=== PATIENT | male | born 1955 | race Caucasian/White ===

== ENCOUNTER 2020-11-28 09:35 | Outpatient (REF) | payer MEDICARE, SELFPAY ==
[2020-11-28 09:51] LABS: Abs Immature Grans 0.09 10^3/uL (0.0-0.06); Absolute Neutrophil Count 8.69 10^3/uL (1.2-6.7); Basophils % 0.4; Eosinophils % 0.4; HCT 29.8 % (40.0-50.0); Immature Grans % 0.7; Lymphocytes % 26.5; MCH 28.8 pg (27.0-33.0); MCHC 33.6 % (32.0-36.0); MCV 85.9 fL (80-95); MPV 9.6 fL (8.0-11.0); Nucleated RBC 0 %; Platelet Count 304 10^3/uL (130-400); RBC 3.47 10^6/uL (4.36-5.78); RDW 14.4 % (11.8-14.1); RDW-SD 42.5 fL; WBC 13.58 10^3/uL (4.4-10.8)
[2020-11-28 09:53] LABS: Absolute Basophil Count 0.05 10^3/uL (0.0-0.2); Absolute Eosinophil Count 0.05 10^3/uL (0.0-0.7); Absolute Monocyte Count 1.09 10^3/uL (0.1-0.8)
[2020-11-28 10:19] LABS: ALT 18 U/L (16-63); AST 14 U/L (15-37); Albumin 3.4 g/dL (3.4-5.0); Alkaline Phosphatase 105 U/L (46-116); Anion Gap 8.1 mmol/L (3-11); BUN 18 mg/dL (7-18); Bilirubin, Total 0.5 mg/dL (0.2-1.0); CO2 28.9 mmol/L (21.0-32.0); CREATININE 1.1 mg/dL (0.70-1.30); Calcium 9.2 mg/dL (8.5-10.1); Chloride 98 mmol/L (98-107); Glucose 178 mg/dL (74-106); Magnesium 1.4 mg/dL (1.8-2.4); Potassium 4.4 mmol/L (3.5-5.1); Sodium 135 mmol/L (136-145); Total Protein 7.9 g/dL (6.4-8.2)
== END 2020-11-28 09:36 | disposition home or self-care (01) ==
LOC: LBN 09:35
PROVIDERS: PCP Family Medicine; Visit Provider Internal Medicine Medical Oncology
DX: C34.90 Malignant neoplasm of unspecified part of unspecified bronchus or lung (principal)
CPT/HCPCS: 80053; 83735; 85025

== ENCOUNTER 2020-12-19 08:47 | Outpatient (REF) | payer MEDICARE, SELFPAY ==
[2020-12-19 09:11] LABS: Abs Immature Grans 0.27 10^3/uL (0.0-0.06); Absolute Basophil Count 0.02 10^3/uL (0.0-0.2); Absolute Eosinophil Count 0.03 10^3/uL (0.0-0.7); Absolute Lymphocyte Count 1.38 10^3/uL (1.2-3.4); Absolute Monocyte Count 1.27 10^3/uL (0.1-0.8); Absolute Neutrophil Count 2.77 10^3/uL (1.2-6.7); Basophils % 0.3; Eosinophils % 0.5; HCT 26.9 % (40.0-50.0); HGB 9.1 g/dL (13.5-17.5); Immature Grans % 4.7; MCH 29.4 pg (27.0-33.0); MCHC 33.8 % (32.0-36.0); MCV 87.1 fL (80-95); MPV 9.6 fL (8.0-11.0); Monocytes % 22.1; Neutrophils % 48.4; Nucleated RBC 0 %; Platelet Count 271 10^3/uL (130-400); RBC 3.09 10^6/uL (4.36-5.78); RDW 15.9 % (11.8-14.1); RDW-SD 49.3 fL; WBC 5.74 10^3/uL (4.4-10.8)
[2020-12-19 09:20] LABS: ALT 23 U/L (16-63); AST 18 U/L (15-37); Albumin 3.3 g/dL (3.4-5.0); Alkaline Phosphatase 99 U/L (46-116); BUN 16 mg/dL (7-18); Bilirubin, Total 0.4 mg/dL (0.2-1.0); CREATININE 0.9 mg/dL (0.70-1.30); Calcium 8.9 mg/dL (8.5-10.1); Chloride 100 mmol/L (98-107); Glucose 199 mg/dL (74-106); Magnesium 1.4 mg/dL (1.8-2.4); Potassium 3.8 mmol/L (3.5-5.1); Sodium 137 mmol/L (136-145); Total Protein 7.5 g/dL (6.4-8.2)
[2020-12-22 07:50] LABS: HCV RNA Qualitative Undetected (Undetected)
== END 2020-12-19 08:48 | disposition home or self-care (01) ==
LOC: LBN 08:47
PROVIDERS: PCP Family Medicine; Visit Provider Internal Medicine Medical Oncology
DX: C34.90 Malignant neoplasm of unspecified part of unspecified bronchus or lung (principal)
CPT/HCPCS: 80053; 87522; 83735; 85025

== ENCOUNTER 2021-01-11 02:28 | Outpatient (CLI) | payer MEDICARE, SELFPAY ==
[2021-01-11 08:07] LABS: Abs Immature Grans 0.07 10^3/uL (0.0-0.06); Absolute Basophil Count 0.03 10^3/uL (0.0-0.2); Absolute Eosinophil Count 0.04 10^3/uL (0.0-0.7); Absolute Monocyte Count 0.98 10^3/uL (0.1-0.8); Absolute Neutrophil Count 7.21 10^3/uL (1.2-6.7); Basophils % 0.3; Eosinophils % 0.4; HGB 8.4 g/dL (13.5-17.5); Immature Grans % 0.8; Lymphocytes % 8.8; MCH 30.8 pg (27.0-33.0); MCHC 33.6 % (32.0-36.0); MCV 91.6 fL (80-95); Monocytes % 10.7; Nucleated RBC 0 %; Platelet Count 210 10^3/uL (130-400); RBC 2.73 10^6/uL (4.36-5.78); RDW 17.4 % (11.8-14.1); WBC 9.13 10^3/uL (4.4-10.8)
[2021-01-11 08:22] LABS: ALT 20 U/L (16-63); AST 16 U/L (15-37); Albumin 3.5 g/dL (3.4-5.0); Alkaline Phosphatase 96 U/L (46-116); Anion Gap 9.4 mmol/L (3-11); BUN 16 mg/dL (7-18); Bilirubin, Total 0.4 mg/dL (0.2-1.0); CO2 28.6 mmol/L (21.0-32.0); CREATININE 0.9 mg/dL (0.70-1.30); Calcium 9.2 mg/dL (8.5-10.1); Chloride 98 mmol/L (98-107); Glucose 150 mg/dL (74-106); Magnesium 1.3 mg/dL (1.8-2.4); Potassium 4.2 mmol/L (3.5-5.1); Sodium 136 mmol/L (136-145); Total Protein 7.8 g/dL (6.4-8.2)
[2021-01-12 13:24] LABS: HCV RNA Qualitative Undetected (Undetected)
== END 2021-01-11 02:29 | disposition home or self-care (01) ==
LOC: LBO 02:28
PROVIDERS: PCP Family Medicine; Visit Provider Internal Medicine Medical Oncology
DX: C34.90 Malignant neoplasm of unspecified part of unspecified bronchus or lung (principal)
CPT/HCPCS: 36415; 80053; 87522; 83735; 85025

== ENCOUNTER 2021-01-30 01:35 | Outpatient (RCR) | payer MEDICARE, MEDICAID, SELFPAY ==
[2021-01-23] MEDS: Normal Saline Flush 10 ML SYR IVP (12:06)
[2021-01-23 12:19] LABS: MCH 31.4 pg (27.0-33.0); MCHC 34.3 % (32.0-36.0); MCV 91.4 fL (80-95); MPV 10.5 fL (8.0-11.0); Nucleated RBC 0 %; RDW 16.2 % (11.8-14.1); RDW-SD 52.3 fL
[2021-01-23 12:28] LABS: HCT 20.1 % (40.0-50.0); HGB 6.9 g/dL (13.5-17.5); WBC 1.76 10^3/uL (4.4-10.8)
[2021-01-23 12:30] LABS: ALT 20 U/L (16-63); AST 12 U/L (15-37); Albumin 3.3 g/dL (3.4-5.0); Alkaline Phosphatase 103 U/L (46-116); BUN 16 mg/dL (7-18); Bilirubin, Total 0.3 mg/dL (0.2-1.0); CREATININE 0.7 mg/dL (0.70-1.30); Calcium 8.7 mg/dL (8.5-10.1); Chloride 101 mmol/L (98-107); Glucose 159 mg/dL (74-106); Magnesium 1.4 mg/dL (1.8-2.4); Potassium 4.2 mmol/L (3.5-5.1); Sodium 135 mmol/L (136-145); Total Protein 7.3 g/dL (6.4-8.2)
[2021-01-23 12:40] LABS: Absolute Lymphocyte Count 0.53 10^3/uL (1.2-3.4); Absolute Neutrophil Count 0.88 10^3/uL (1.2-6.7)
[2021-01-23 12:41] LABS: Absolute Monocyte Count 0.35 10^3/uL (0.1-0.8); Anisocytosis 2+; Diff Comment Manual Differential; Platelet Count 67 10^3/uL (130-400)
== END 2021-02-04 23:59 | disposition home or self-care (01) ==
LOC: INF 01:35
PROVIDERS: PCP Family Medicine; Visit Provider Internal Medicine Medical Oncology
DX: C34.90 Malignant neoplasm of unspecified part of unspecified bronchus or lung (principal); Z45.2 Encounter for adjustment and management of vascular access device
CPT/HCPCS: 36591; 80053; 83735; 85025

== ENCOUNTER 2021-09-04 12:44 | Outpatient (CLI) | payer MEDICARE, MEDICAID, SELFPAY ==
--- NOTE | 2021-09-04 12:07 | DI.RAD_ITS ---
Exam(s) XR CHEST 2V PA LATERAL EXAM: XR CHEST 2V PA LATERAL CLINICAL HISTORY: SMALL CELL LUNG CA, C34.90, S/P CHEMO/RT TO RT, DYSPNEA/PAIN AFTER MEDIPORT TECHNIQUE: 2D digital imaging was performed. COMPARISON: No exams were available for comparison FINDINGS: MEDIASTINUM: Normal. HEART: Normal. PULMONARY VASCULATURE: Normal. LUNGS: Right lung clear. Scarring right lower lung field increased densities left perihilar region, infiltrate versus mass. Question nodule versus artifact seen on PA view of the level of the right diaphragm. PLEURAL SPACE: No pleural effusion or pneumothorax. BONE:Right upper rib deformities. Port over right upper chest the tip in SVC. IMPRESSION: No prior comparison exams available. Left infrahilar densities, mass versus infiltrate. Question no dule at the right lung base. DATA REPOSITORY: RADIATION DOSE DELIVERED:
== END 2021-09-04 13:04 ==
PROVIDERS: PCP Family Medicine; Visit Provider Internal Medicine Medical Oncology
DX: R06.09 Other forms of dyspnea (principal); C34.90 Malignant neoplasm of unspecified part of unspecified bronchus or lung; Z92.21 Personal history of antineoplastic chemotherapy; Z92.3 Personal history of irradiation; R91.8 Other nonspecific abnormal finding of lung field
CPT/HCPCS: 71046

== ENCOUNTER 2022-08-07 01:44 | Outpatient (CLI) | payer MEDICARE, MEDICAID, SELFPAY ==
--- NOTE | 2022-08-07 | DI.CT_ITS ---
Exam(s) CT CHEST W EXAM: CT CHEST W CLINICAL HISTORY: LUNG CA,C34.90,S/P CHEMO AND RT,SURVEILLANCE SCAN, TECHNIQUE: Imaging Protocol: Axial computed tomography images with coronal and sagittal reformatted images were created and reviewed CONTRAST MATERIAL: Intravenous: Omnipaque 350Contrast volume:7 mL. COMPARISON: CT CT CHEST LOW DOSE FOLLOW UP from 01/09/[address] BX LUNG PERCUTANEOUS NEEDLE from 03/17/[address] CHEST W IV CONTRAST from 03/19/2022 FINDINGS: Tracheobronchial tree: Bronchiectatic changes are again seen in the left lower lobe. Pulmonary parenchyma: Emphysematous changes are present in the lungs. The right lower lobe lung mass measures 2.2 x 1.7 cm. This compares to 2.1 x 1.7 cm on the prior examination. There is a new 0.5 cm noncalcified pulmonary nodule in the right upper lobe. Fibrotic changes are seen in the lungs. N o focal consolidations are present. Mediastinum and [place]: No dominant adenopathy or fluid collection. The esophagus is unremarkable. Thyroid gland: Unremarkable. Pleura: No effusion or pneumothorax. Heart: The heart is not dilated. Moderate coronary artery calcification is present. No pericardial e ffusion. Aorta: Thoracic aorta non-dilated. Atherosclerosis is present. Pulmonary arteries: Due to the bolus timing pulmonary arteries are not well opacified for evaluation of pulmonary emboli. Upper abdomen: There are bilateral renal cysts. There is a 1 cm hyperdense nodule in the upper pole of the right kidney. Lymph nodes: Within normal limits. Bones: Within normal limits for the patient's age. No aggressive osseous lesions are identified. Soft tissues: There is bilateral gynecomastia. IMPRESSION: 1. Stable right lower lobe lung mass. 2. New 0.5 cm pulmonary nodule in the right upper lobe. Metastatic focus should be considered. 3. Bilateral renal cysts. 1 cm hyperdense nodule in the right upper lobe of the kidney. This was no t apparent on the prior examination. Renal mass cannot be excluded. Follow-up abdominal CT is recom mended. Unexpected findings RADIATION DOSE DELIVERED: 805.22mGy.cm Total DLP DATA REPOSITORY: All CT scans at this facility are submitted to the National Radiology Data Registry (NRDR) Dose Index Registry (DIR) with the [employer] ([employer]). RADIATION OPTIMIZATION: All CT scans at this facility use at least one of these dose optimization te chniques: automated exposure control; mA and/or kV adjustment per patient size (includes targeted exa ms where dose is matched to clinical indication); or iterative reconstruction.
[2022-08-07 09:33] LABS: Abs Immature Grans 0.05 10^3/uL (0.0-0.06); Absolute Basophil Count 0.04 10^3/uL (0.0-0.2); Absolute Eosinophil Count 0.13 10^3/uL (0.0-0.7); Absolute Monocyte Count 0.74 10^3/uL (0.1-0.8); Absolute Neutrophil Count 4.35 10^3/uL (1.2-6.7); Basophils % 0.5; Eosinophils % 1.7; HCT 31.8 % (40.0-50.0); HGB 10.2 g/dL (13.5-17.5); Immature Grans % 0.7; Lymphocytes % 29.3; MCH 28.1 pg (27.0-33.0); MCHC 32.1 % (32.0-36.0); MCV 88 fL (80-95); Monocytes % 9.9; Neutrophils % 57.9; Platelet Count 239 10^3/uL (130-400); RBC 3.63 10^6/uL (4.36-5.78); RDW 13.6 % (11.8-14.1); RDW-SD 43.5 fL; WBC 7.51 10^3/uL (4.4-10.8)
[2022-08-07 09:47] LABS: ALT 14 U/L (16-63); AST 21 U/L (15-37); Albumin 3.4 g/dL (3.4-5.0); Alkaline Phosphatase 110 U/L (46-116); Anion Gap 5.6 mmol/L (3-11); BUN 16 mg/dL (7-18); Bilirubin, Total 0.3 mg/dL (0.2-1.0); CO2 32.4 mmol/L (21.0-32.0); Calcium 10.2 mg/dL (8.5-10.1); Chloride 97 mmol/L (98-107); Estimated GFR 81.47 (mL/min/1.73m2); Glucose 129 mg/dL (74-106); Potassium 4.6 mmol/L (3.5-5.1); Sodium 135 mmol/L (136-145); Total Protein 8.2 g/dL (6.4-8.2)
[2022-08-07] MEDS: Normal Saline - Diluent 50 ML VIAL IJ (10:12)
[2022-08-07] MEDS: Omnipaque 350 MG/ML 100 ML BTL IJ (10:13)
[2022-08-07] MEDS: Normal Saline Flush 10 ML SYR IVP (10:13)
== END 2022-08-07 02:04 ==
LOC: DI 01:45
PROVIDERS: PCP Family Medicine; Visit Provider Internal Medicine Medical Oncology
DX: C34.31 Malignant neoplasm of lower lobe, right bronchus or lung (principal); Z92.21 Personal history of antineoplastic chemotherapy; Z92.3 Personal history of irradiation; Z12.89 Encounter for screening for malignant neoplasm of other sites; J98.4 Other disorders of lung; N28.1 Cyst of kidney, acquired; R91.1 Solitary pulmonary nodule; N28.89 Other specified disorders of kidney and ureter
CPT/HCPCS: 80053; 71260; 85025; J3490

== ENCOUNTER 2022-09-10 13:27 | Emergency (ER) | payer MEDICARE, MEDICAID, SELFPAY ==
[2022-09-10 13:42] VITALS: BP 97/62; PULSE 67; RESP 20; TEMP 36.4; O2SAT 97
--- NOTE | 2022-09-10 15:02 | ED.GENADUL_ITS ---
Discharge Plan Disposition Patient Disposition: Home Discharge Details Clinical Impression: Uncontrolled pain, Bone metastases Primary Care Provider: Mario Garcia ED Provider: Vikram Minor Discharge Instructions Additional Instructions: You were seen in the emergency department for your pain. You received your pain medications. Please take your home pain medications as previously scheduled. Please go to your primary care provider tomorrow morning for your appointment at 9 AM. Please return to the emergency department if if you develop worsening pain any nausea or vomiting or if you cannot eat or drink. Medical Decision Making This is a normothermic and not tachycardic 67-year-old male with a history of insulin-dependent diabetes, POLA, COPD on 2 to 3 L home oxygen, chronic methadone use, small cell lung cancer and recent diagnoses of spinal metastases now in the emergency department setting of worsening pain. He has not been vomiting to suggest any acute electrolyte abnormalities. No reported fevers so I am not concerned for neutropenic fever. He did have a soft blood pressure on arrival but he was in the 120s at his oncology appointment earlier today and his repeat blood pressure was 131/81. He is satting well on his home oxygen so not concerned for pneumonia. Furthermore he endorses no shortness of breath. He has had no fevers or cough to suggest pneumonia. He has a soft nontender abdomen so I am not concerned for intra-abdominal process. No chest pain to suggest ACS. His pain is primarily in his back and he is on outpatient oxycodone 140 mg divided twice daily at 70 mg per dose and oxycodone 20 mg every 4 as needed. He reports that he has these medications at home. Patient states strong desire was to avoid hospitalization. We will attempt to control pain on his home oral medications and discharge with outpatient PMD follow-up which has been previously arranged for 9 AM tomorrow. He has no new falls to suggest no new metastases nor pathological fractures. I have asked health recovery unit operator to request a pain clinic follow-up for this patient. HPI General Date/Time Provider Initiated Documentation: 09/10/22 14:43 . HPI Narrative: This is a 67-year-old male with a history of metastatic lung cancer and recent hospitalization at [facility] from which he left AMA 3 days ago now with worsening back pain. Patient reports that he took his methadone dose last night. During his inpatient hospitalization he was maintained on his home methadone which was divided twice daily and to 70 mg per dose, his oxycodone was dosed at 20 mg p.o. every 4 as needed in addition to scheduled acetaminophen and Lidoderm patches. He reports having adequate supplies of pain medicines at home. He has had no vomiting. No chest pain. No shortness of breath. No loss of bowel nor bladder control. No recent fevers. No falls. He reports that he has a ride home from his friend. He has not felt more short of breath on his home oxygen. He was referred by hematology/oncology. Related Data Allergies Allergy/AdvReac Type Severity Reaction Status Date / Time No Known Allergies Allergy Unverified 09/10/22 13:48 General Stated Complaint: [facility] MARISABEL: 3 PFSH All Active Problems (Updated 09/10/22 @ 15:29 by Vikram Minor MD) Uncontrolled pain (Acute) Bone metastases (Acute) Social History Smoking/Tobacco Use Status: Former Tobacco Use Smoking risk assessment performed?: Yes Alcohol Intake: former Substance use type: does not use Do you feel safe at home: Yes Do you feel safe in your relationship?: Yes Exam Narrative Exam Narrative: General: Chronically ill but nontoxic--appearing in mild distress speaking in complete sentences. Head: Normocephalic, atraumatic Ear, nose, mouth, throat: Grossly normal inspection. Normal voice, handling secretions normally. Neck: Trachea midline. Cardiovascular: Well-perfused distal extremities. Regular rate and rhythm Respiratory: Nonlabored respiration. Saturating well on home oxygen 2 L Back: Tenderness to percussion left posterior superior iliac spine. No midline spinal tenderness. Gastrointestinal: Nondistended abdomen. Musculoskeletal: No edema. Moving all 4 extremities spontaneously. Left lower extremity with slight limitation in dorsi and plantarflexion, 4 out of 5 strength secondary to pain. Bilateral feet warm well perfused. Skin: Normal for age and race, grossly normal temperature and turgor. No acute rash. Neurologic: Alert and appropriate, no apparent acute deficits. Psychiatric: Mood and manner are appropriate. Grooming and personal hygiene are appropriate. Course Vital Signs Vital signs: Vital Signs Temperature 36.4 C 09/10/22 13:42 Pulse 67 09/10/22 13:42 Respiratory Rate 20 09/10/22 13:42 Blood Pressure 97/62 L 09/10/22 13:42 Pulse Oximetry 97 09/10/22 13:42 Temperature 36.4 C 09/10/22 13:42 Temperature Source Oral 09/10/22 13:42 Pulse 67 09/10/22 13:42 Respiratory Rate 20 09/10/22 13:42 Respiratory Effort Normal, Non-Labored 09/10/22 14:36 Blood Pressure 97/62 L 09/10/22 13:42 Blood Pressure Position Sitting 09/10/22 13:42 Pulse Oximetry 97 09/10/22 13:42 Oxygen Delivery Method Room Air 09/10/22 13:42 Oxygen Flow Rate 0 09/10/22 13:42 Pain Level 10 09/10/22 13:42 Lab/Test Results Lab/Test Results: Laboratory Tests Range/Units 09/10/22 09/10/22 14:46 14:46 WBC Cancelled RBC Cancelled Hgb Cancelled Hct Cancelled MCV Cancelled MCH Cancelled MCHC Cancelled RDW Cancelled Plt Count Cancelled MPV Cancelled Sodium Cancelled Potassium Cancelled Chloride Cancelled Carbon Dioxide Cancelled Anion Gap Cancelled BUN Cancelled Creatinine Cancelled Est GFR (CKD-EPI 2020) Cancelled Glucose Cancelled Calcium Cancelled
[2022-09-10 15:11] VITALS: BP 131/81; PULSE 89; RESP 20; O2SAT 97
[2022-09-10] MEDS: Acetaminophen 500 MG TAB 1000 MG PO (15:31)
[2022-09-10] MEDS: oxyCODONE 10 MG TAB 20 MG PO (15:31)
[2022-09-10] MEDS: Methadone 10 MG TAB 70 MG PO (15:31)
[2022-09-10 16:30] VITALS: BP 131/81; PULSE 89; RESP 20; O2SAT 97
--- NOTE | 2022-09-10 16:58 | NUR.NOTE ---
Nursing Note: Referral faxed to PCP for needs pain clinic referral/has appt with PCP tomorrow. [facility].
== END 2022-09-10 16:29 | disposition home or self-care (01) ==
PROVIDERS: Emergency Provider Emergency Medicine; PCP Family Medicine
DX: G89.3 Neoplasm related pain (acute) (chronic) (principal); C79.51 Secondary malignant neoplasm of bone
CPT/HCPCS: 80048; 85027; 99283; 99284